=== PATIENT | female | born 2000 | race Caucasian/White ===

== ENCOUNTER 2023-05-31 10:20 | Emergency (ER) | payer MEDICAID, SELFPAY ==
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
[2023-05-31 10:23] VITALS: BP 126/74; PULSE 76; RESP 16; TEMP 36.6; O2SAT 99; BMI 25.3
--- OUTSIDE RECORDS SUMMARY | 2023-05-31 14:02 | XMS_ITS | Continuity of Care Document ---
Author Name Unknown Organization [facility] Address [address] [address]- Care Team Providers Care Grocery Bagger Name Role Phone Ty COLON, Yajaira Woods Primary Care Physician [facility]counter [facility] Date(s): 12/15/21 - 01/14/22 [facility] [address] [address]- Allergies, Adverse Reactions, Alerts Substance Reaction Severity Status cranberry Rash Active Cats Hives Active Immunizations Given and Recorded Vaccine Date Status Refusal Reason Measles/Mumps/Rubella Virus Vaccine 1 09/02/18 Giv en tetanus/diphtheria/pertussis, acel(Tdap) 07/12/18 Given influenza virus vaccine, inactivated 02/15/18 Give n 1Early/Late Reason: Other : because other nurse didnt do it Medications cetirizine 10 mg oral capsule 1 capsule = 10 mg, By Mouth, Daily, PRN for allergy symptoms, # 30 capsule, 0 Refills, Maintenance,09/07/19 17:38:00 EDT, [facility], [id number], 155, cm, 09/07/19 14:43:00 EDT, Height, 57.72, kg, 08/08/19 13:46:00 EDT, Dry Weight Start Date: 09/07/19 Stop Date: 10/07/19 Status: Ordered ferrous sulfate 325 mg oral enteric coated tablet 325 mg, By Mouth, 2 times a day, may take with food to minimize abdominal discomfort, # 30 tablet, Refills 1, Tot. Refills 1, Maintenance, 10/28/19 11:10:00 EDT, Route to [facility]acy [facility]ically, [id number], 155, cm, 10/28/19 8:47:00 EDT, Heig... Start Date: 10/28/19 Stop Date: 12/27/19 Status: Ordered PNV Plus oral tablet 1 tablet, By Mouth, Daily, Please fill as gummies, # 90 tablet, 3 Refills, Maintenance, 01/04/22 10:36:00 EDT, [id number], Partial fill upon patient request if the prescription is for a schedule II opioid drug., 1 tablet By Mouth Daily,Instr:P... Start Date: 01/04/22 Status: Ordered Multivitamins with Folic Acid 1 mg oral tablet 1 tablet, By Mouth, Daily, # 30 tablet, 11 Refills, Maintenance, 07/20/19 15:22:00 EDT, [id number], 1 tablet By Mouth Daily, 155, cm, 10/18/18 13:00:00 EDT, Height, 63, kg, 09/01/18 22:09:00 EDT, Dry Weight Start Date: 07/20/19 Status: Ordered Xulane 150 mcg-35 mcg/24 hr transdermal film, extended release See Instructions, 1 patch Topically apply a new patch weekly for 3 weeks, remove for 1 week, then repeat cycle, # 3 each, 6 Refills, Maintenance, 12/07/19 16:09:00 EDT, [id number], 1 patch Topically; apply a new patch weekly for 3 weeks, jaylin... Start Date: 12/07/19 Status: Ordered Problem List Condition Confirmation Course Effective Dates Status Health St atus Informant History of Anxiety Confirmed Active History of depression 1 Confirmed Active History of hemorrhage Confirmed 09/02/18 Active Blood type, Rh negative Confirmed Active 1Reports h/o depression/anxiety but reports no an issue currently. Social History Social History Type Response Smoking Status Never (less than 100 in lifetime) entered on: 01/04/22 Sex Patient Care team information Personnel Name: Yajaira Crawford MD Address: Address: [address] [place] [address] [facility] [place], [place] [address]
--- OUTSIDE RECORDS SUMMARY | 2023-05-31 14:02 | XMS_ITS | Continuity of Care Document ---
Author Name Unknown Organization [facility] Address [address] [address]- Care Team Providers Care Instructor Painting Name Role Phone Ty COLON, Yajaira Woods Primary Care Physician Encounter [facility] Date(s): 12/07/19 - 01/06/20 [facility] [address] [address]- [facility] Attending Physician: Ted Aponte Admitting Physician: Ted Aponte Referring Physician: AdmtrTed Allergies, Adverse Reactions, Alerts Substance Reaction Severity [...] 10/28/19 11:10:00 EDT, Route to Pharmacy Electronically, [facility]/pharmacy #[id number], 155, cm, 10/28/19 8:47:00 EDT, Heig... Start Date: 10/28/19 Stop Date: 12/27/19 Status: Ordered Multivitamins with Folic Acid 1 mg oral tablet 1 tablet, By Mouth, Daily, # 30 tablet, 11 Refills, Maintenance, 07/20/19 15:22:00 EDT, [facility]/pharmacy #207, 1 tablet By Mouth Daily, 155, cm, 10/18/18 13:00:00 EDT, Height, 63, kg, 09/01/18 22:09:00 EDT, Dry Weight Start Date: 07/20/19 Status: Ordered Xulane 150 mcg-35 mcg/24 hr transdermal film, extended release See Instructions, 1 patch Topically apply a new patch weekly for 3 weeks, remove for 1 week, then repeat cycle, # 3 each, 6 Refills, Maintenance, 12/07/19 16:09:00 EDT, [facility]/pharmacy #207, 1 patch Topically; apply a new patch weekly for 3 weeks, jaylin... Start Date: 12/07/19 Status: Ordered Problem List Condition Effective Dates Status Health Status Inform ant History of Anxiety(Confirmed) Active History of depression(Confirmed) 1 Active History of hemorrhage(Confirmed) 09/02/18 Active Blood type, Rh negative(Confirmed) Active 1Reports h/o depression/anxiety but reports no an issue currently. Social History Social History Type Response Smoking Status Never (less than 100 in lifetime) entered on: 02/15/18 Sex
--- OUTSIDE RECORDS SUMMARY | 2023-05-31 14:02 | XMS_ITS | Continuity of Care Document ---
Author Name Unknown Organization [facility] Autumn[employer]ayla Huang [employer] Address [address] [facility], [address] [place] [address]- Care Team Providers Care Artificial Breeding Technician Name Role Phone Ty COLON, Yajaira Woods Primary Care Physician [id number] Date(s): 01/22/22 - 02/21/22 [facility] Kendaliam[facility]la Gomez[facility] [address] [facility], [address] [place], [place] [address] Attending Physician: Ted Aponte Admitting Physician: AdmTed davidson Referring Physician: AdmtrTed Allergies, Adverse Reactions, Alerts [...] 10/28/19 11:10:00 EDT, Route to Pharmacy Electronically, [facility]/pharmacy #207, 155, cm, 10/28/19 8:47:00 EDT, Heig... Start Date: 10/28/19 Stop Date: 12/27/19 Status: Ordered PNV Plus oral tablet 1 tablet, By Mouth, Daily, Please fill as gummies, # 90 tablet, 3 Refills, Maintenance, 01/04/22 10:36:00 EDT, [facility]/pharmacy #[id number], Partial fill upon patient request if the prescription is for a schedule II opioid drug., 1 tablet By Mouth Daily,Instr:P... Start Date: 01/04/22 Status: Ordered Multivitamins with Folic Acid 1 mg oral tablet 1 tablet, By Mouth, Daily, # 30 tablet, 11 Refills, Maintenance, 07/20/19 15:22:00 EDT, [facility]/pharmacy #[id number], 1 tablet By Mouth Daily, 155, cm, 10/18/18 13:00:00 EDT, Height, 63, kg, 09/01/18 22:09:00 EDT, Dry Weight Start Date: 07/20/19 Status: Ordered Xulane 150 mcg-35 mcg/24 hr transdermal film, extended release See Instructions, 1 patch Topically apply a new patch weekly for 3 weeks, remove for 1 week, then repeat cycle, # 3 each, 6 Refills, Maintenance, 12/07/19 16:09:00 EDT, [facility]/pharmacy #[id number], 1 patch Topically; apply a new [...] on: 01/04/22 Sex Patient Care team information Care Team Personnel Name: Yajaira Crawford MD Position: [facility] MD Member Role: PCP Address: Address: [address] [place] [address] [facility] [place], [place] [address] Care Team Related Persons Name: DONALD RIDER Address: AMER[place] Address: [address] [address] Name: NAINA HATHAWAY Address: [employer] Address: [address] [address] Name: KIKO OWUSU Address: [address] [address]
--- OUTSIDE RECORDS SUMMARY | 2023-05-31 14:02 | XMS_ITS | Continuity of Care Document ---
Author Name Unknown Organization [facility] Address [address] [address]- Care Team Providers Care Shoe Stock Associate Name Role Phone Yajaira Crawford MD Primary Care Phys[id number] - [facility]/26/22 [facility] [address] [address] Attending Physician: Not on Staff, Attending MD Referring Physician: Yajaira Crawford MD Allergies, Adverse Reactions, Alerts Substance Reaction Severity [...] 10/28/19 11:10:00 EDT, Route to Pharmacy Electronically, [facility]/pharmacy #[id number], 155, cm, 10/28/19 8:47:00 EDT, Heig... Start Date: 10/28/19 Stop Date: 12/27/19 Status: Ordered PNV Plus oral tablet 1 tablet, By Mouth, Daily, Please fill as gummies, # 90 tablet, 3 Refills, Maintenance, 01/04/22 10:36:00 EDT, [facility]/pharmacy #[id number], Partial fill upon patient request if the prescription is for a schedule II opioid drug., 1 tablet By Mouth Daily,Instr:P... Start Date: 01/04/22 Status: Ordered Multivitamins with Folic Acid 1 mg oral tablet 1 tablet, By Mouth, Daily, # 30 tablet, 11 Refills, Maintenance, 07/20/19 15:22:00 EDT, [facility]/pharmacy #[id number], 1 tablet By Mouth Daily, 155, cm, 10/18/18 13:00:00 EDT, Height, 63, kg, 09/01/18 22:09:00 EDT, Dry Weight Start Date: 07/20/19 Status: Ordered Xulane 150 mcg-35 mcg/24 hr transdermal film, extended release See Instructions, 1 patch Topically apply a new patch weekly for 3 weeks, remove for 1 week, then repeat cycle, # 3 each, 6 Refills, Maintenance, 12/07/19 16:09:00 EDT, [facility]/pharmacy #[id number], 1 patch Topically; apply a new [...] Team Personnel Name: Yajaira Crawford MD Position: S [facility] Pediatric[facility] MD Member Role: PCP Address: Address: [address] [place] [address] [place] [address]- Care Team Related Persons Name: ODNALD RIDER Address: AMER[place] Address: [address] [address] [place] Name: NAINA HATHAWAY Address: [employer] Address: home [address] [address] [place] Name: KIKO OWUSU Address: home [address] [address]
--- OUTSIDE RECORDS SUMMARY | 2023-05-31 14:02 | XMS_ITS | Continuity of Care Document ---
Author Name Unknown Organization [facility] Marcolamikayla Huang [employer] [facility] Address [address] [place] [address], [address] [place] [address]- Care Team Providers Care Stock Roller Name Role Phone Ty COLON, Yajaira Woods Primary Care Physician Encounter [facility] Date(s): 10/01/19 - 10/08/19 [facility] [address] [facility], [address] [place] [address]- [facility] Attending Physician: Ayanna Sanches MD Referring Physician: Monica Armstrong CNM Allergies, Adverse Reactions, Alerts Substance Reaction Severity [...] Date: 09/07/19 Stop Date: 10/07/19 Status: Ordered Freestyle Lite Lancets See Instructions, # 100 each, Refills 5, Tot. Refills 5, Maintenance, TEST QID for Gestational Diabetes., 09/24/19 16:03:00 EDT, Supply, 155, cm, 09/20/19 9:44:00 EDT, Height, 57.72, kg, 08/08/19 13:46:00 EDT, Dry Weight Start Date: 09/24/19 Status: Ordered Freestyle Lite Monitor See Instructions, # 1 each, Refills 0, Tot. Refills 0, Maintenance, Test QID for Gestational Diabetes, 09/24/19 16:03:00 EDT, Supply, 155, cm, 09/20/19 9:44:00 EDT, Height, 57.72, kg, 08/08/19 13:46:00 EDT, Dry Weight Start Date: 09/24/19 Status: Ordered Freestyle Lite Test Strips See Instructions, # 100 each, Refills 5, Tot. Refills 5, Maintenance, TEST QID for Gestational Diabetes., 09/24/19 16:03:00 EDT, Supply, 155, cm, 09/20/19 9:44:00 EDT, Height, 57.72, kg, 08/08/19 13:46:00 EDT, Dry Weight Start Date: 09/24/19 Status: Ordered Multivitamins with Folic Acid 1 mg oral tablet 1 tablet, By Mouth, Daily, # 30 tablet, 11 Refills, Maintenance, 07/20/19 15:22:00 EDT, [facility]/pharmacy #[id number], 1 tablet By Mouth Daily, 155, cm, 10/18/18 13:00:00 EDT, Height, 63, kg, 09/01/18 22:09:00 EDT, Dry Weight Start Date: 07/20/19 Status: Ordered Problem List Condition Effective Dates Status Health Status Inform ant History of Anxiety(Confirmed) Active History of depression(Confirmed) 1 Active History of hemorrhage(Confirmed) 09/02/18 Active Blood type, Rh negative(Confirmed) Active 1Reports h/o depression/anxiety but reports no an issue currently. Social History Social History Type Response Smoking Status Never (less than 100 in lifetime) entered on: 09/28/19 Sex
--- OUTSIDE RECORDS SUMMARY | 2023-05-31 14:02 | XMS_ITS | Continuity of Care Document ---
Author Name Unknown Organization [facility] Isabellamikayla Huang [employer] Address [address] [facility], 4t [place] [address]- Care Team Providers Care Boat Patcher Plastic Name Role Phone Ty COLON, Yajaira Woods Primary Care Physician [id number]s): 10/01/19 - 10/31/19 [facility] [address] [facility], 4th [place] [address]- [facility] Attending Physician: Admlety, Yomi8 Admitting Physician: AdmtrTed Referring Physician: Admtr, Ar8 Allergies, Adverse Reactions, Alerts Substance Reaction Severity Status cranberry Rash Active Cats Hives Active Immunizations Given and Recorded Vaccine Date Status Refusal Reason Measles/Mumps/Rubella Virus Vaccine 1 09/02/18 Giv en tetanus/diphtheria/pertussis, acel(Tdap) 07/12/18 Given influenza virus vaccine, inactivated 02/15/18 Give n 1Early/Late Reason: Other : because other nurse didnt do it Medications acetaminophen 325 mg oral tablet 650 mg, By Mouth, Every 6 hours, PRN, for 7 days, not to exceed 4000 mg/day, # 30 tablet, Refills 1, Tot. Refills 1, Acute 11/11/19 11:10:00 EDT, Pain , Mild, 10/28/19 11:10:00 EDT, Route to PharmacyElectronically, [facility]/pharmacy #[id number], 155, cm, ... Start Date: 10/28/19 Stop Date: 11/11/19 Status: Ordered cetirizine 10 mg oral capsule 1 capsule = 10 mg, By Mouth, Daily, PRN for allergy symptoms, # 30 capsule, 0 Refills, Maintenance,09/07/19 17:38:00 EDT, Capsule, [facility]/pharmacy #[id number], 155, cm, 09/07/19 14:43:00 EDT, Height, [...] Date: 10/28/19 Stop Date: 12/27/19 Status: Ordered ibuprofen 800 mg oral tablet 800 mg, 1, tablet, By Mouth, Every 8 hours, PRN, for 30 days, Only a total of 800mg of Ibuprofen every 8 hours. not to exceed 3200 mg/day, # 30 tablet, Refills 1, Tot. Refills 1, Acute 12/27/19 11:11:00 EDT, Pain , Moderate, 10/28/19 11:11:00 EDT, Ro... Start Date: 10/28/19 Stop Date: 12/27/19 Status: [...]
--- OUTSIDE RECORDS SUMMARY | 2023-05-31 14:03 | XMS_ITS | Continuity of Care Document ---
Author Name Unknown Organization [facility] Address [address] [address]- Care Team Providers Care Inspecting And Testing Lead Hand Name Role Phone Ty COLON, Yajaira Woods Primary Care Physician Encounter [facility] Date(s): 03/24/20 - 04/23/20 [facility] [address] [address]- Allergies, Adverse Reactions, Alerts Substance Reaction Severity [...]
--- OUTSIDE RECORDS SUMMARY | 2023-05-31 14:03 | XMS_ITS | Continuity of Care Document ---
Author Name Unknown Organization [facility] Autumnmikayla Huang [employer] Address [address] [facility], 4t [place] [address]- Care Team Providers Care Sample Driller Name Role Phone Ty COLON, Yajaira Woods [id number] - [facility] [employer] [address] [facility], [address]th [place], [place] [address] Attending Physician: Ayanna Sanches MD Referring Physician: Not on Staff, Referring MD Allergies, Adverse Reactions, Alerts Substance Reaction [...] 10/28/19 11:10:00 EDT, Route to Pharmacy Electronically, [facility]/pharmacy #[id number], 155, cm, 10/28/19 8:47:00 EDT, Heig... Start Date: 10/28/19 Stop Date: 12/27/19 Status: Ordered PNV Plus oral tablet 1 tablet, By Mouth, Daily, Please fill as gummies, # 90 tablet, 3 Refills, Maintenance, 01/04/22 10:36:00 EDT, [facility]/pharmacy #[id number], Partial fill upon patient request if the prescription is for a schedule II opioid drug., 1 tablet By Mouth Daily,Instr:P... Start Date: 01/04/22 Status: Ordered Multivitamins with Folic Acid 1 mg oral tablet 1 tablet, By Mouth, Daily, # 30 tablet, 11 Refills, Maintenance, 07/20/19 15:22:00 EDT, [facility]/pharmacy #[id number], 1 tablet By Mouth Daily, 155, cm, 10/18/18 13:00:00 EDT, Height, 63, kg, 09/01/18 22:09:00 EDT, Dry Weight Start Date: 07/20/19 Status: Ordered Xulane 150 mcg-35 mcg/24 hr transdermal film, extended release See Instructions, 1 patch Topically apply a new patch weekly for 3 weeks, remove for 1 week, then repeat cycle, # 3 each, 6 Refills, Maintenance, 12/07/19 16:09:00 EDT, [facility]/pharmacy #207, 1 patch Topically; apply a new [...] Pediatrics MD Member Role: PCP Address: Address: [address] [place] [address] [facility] [place], [place] [email or web address] Care Team Related Persons Name: DONALD RIDER Address: AMER[place] Address: [address] [address] [place] Name: NAINA HATHAWAY Address: [employer] Address: home [address] [address] [place] Name: KIKO OWUSU Address: home [address] [address]
--- OUTSIDE RECORDS SUMMARY | 2023-05-31 14:03 | XMS_ITS | Continuity of Care Document ---
Author Name Unknown Organization [facility] Autumnmikayla Huang [employer] Address [address] [facility], 4t [place] [address]- Care Team Providers Care Combo Welder Name Role Phone Ty COLON, Yajaira Woods Primary Care Physician En[place] [facility] Date(s): 09/10/19 - 09/17/19 [facility] [employer] [address] [facility], 4th [place] [address]- [facility] Attending Physician: Ayanna Sanches MD Referring Physician: [...] 0 Refills, Maintenance,09/07/19 17:38:00 EDT, [facility], [facility], 155, cm, 09/07/19 14:43:00 EDT, Height, 57.72, kg, 08/08/19 13:46:00 EDT, Dry Weight Start Date: 09/07/19 Stop Date: 10/07/19 Status: Ordered Multivitamins with Folic Acid 1 [...] Smoking Status Never (less than 100 in lifetime); Tobacco user in household: No entered on: 08/08/19 Sex
--- OUTSIDE RECORDS SUMMARY | 2023-05-31 14:03 | XMS_ITS | Continuity of Care Document ---
Author Name Unknown Organization [facility] ter Address [address] [place] [address]- Care Team Providers Care Product Safety Expert Name Role Phone Ty COLON, Yajaira Woods Primary Care Physician Encounter [facility] Date(s): 10/26/19 - 10/28/[address] [address]- [facility] Discharge Disposition: A-D/C Home Attending Physician: López Shepard MD Admitting Physician: López Shepard MD Referring Physician: López Shepard MD Allergies, Adverse Reactions, Alerts Substance Reaction [...] Mild, 10/28/19 11:10:00 EDT, Route to PharmacyElectronically, [facility]/pharmacy #[id number], 155, cm, ... Start Date: 10/28/19 Stop Date: 11/11/19 Status: Ordered cetirizine 10 mg oral capsule 1 capsule = 10 mg, By Mouth, Daily, PRN for allergy symptoms, # 30 capsule, 0 Refills, Maintenance,09/07/19 17:38:00 EDT, Capsule, [facility]/pharmacy #[id number], 155, cm, 09/07/19 14:43:00 EDT, Height, 57.72, kg, 08/08/19 13:46:00 EDT, Dry Weight Start Date: 09/07/19 Stop Date: 10/07/19 Status: Ordered ferrous sulfate 325 mg oral enteric coated tablet 325 mg, By Mouth, 2 times a day, may take with food to minimize abdominal discomfort, # 30 tablet, Refills 1, Tot. Refills 1, Maintenance, 10/28/19 11:10:00 EDT, Route to Pharmacy Electronically, [facility]/pharmacy #207, 155, cm, 10/28/19 8:47:00 EDT, Heig... [...] tablet, 11 Refills, Maintenance, 07/20/19 15:22:00 EDT, [facility]/pharmacy #[id number], 1 tablet By Mouth Daily, 155, cm, 10/18/18 13:00:00 EDT, Height, 63, kg, 09/01/18 22:09:00 EDT, Dry Weight Start Date: 07/20/19 Status: Ordered Problem List Condition Effective Dates Status Health Status Inform ant History of Anxiety(Confirmed) Active History of depression(Confirmed) 1 Active History of hemorrhage(Confirmed) 09/02/18 Active Blood type, Rh negative(Confirmed) Active 1Reports h/o depression/anxiety but reports no an issue currently. Vital Signs Most recent to oldest [Reference Range]: 1 2 3 Height 155 cm (10/28/19 8:47 AM) 155 cm (10/27/19 3:54 PM) 155 cm (10/27/19 11:53 AM) Weight 68.7 kg (10/26/19 1:09 PM) Oxygen Saturation [94-100 %] 100 % (10/27/19 9:30 AM) 100 % (10/27/19 8:01 AM) 100 % (10/27/19 3:59 AM) Pulse Rate [55-90 bpm] 69 bpm (10/28/19 8:47 AM) 86 bpm (10/28/19 12:00 AM) 92 bpm *H* (10/27/19 3:54 PM) Body Mass Index [18.5-24.99] 28.6 *H* (10/26/19 1:09 PM) Blood Pressure [90-138/55-84 mm Hg] 91/50mm Hg (10/28/19 8:47 AM) 97/55mm Hg (10/28/19 12:00 AM) 97/51mm Hg (10/27/19 3:54 PM) Respiratory Rate [16-30 br/min] 17 br/min (10/28/19 8:47 AM) 18 br/min (10/28/19 12:00 AM) 18 br/min (10/27/19 3:54 PM) Temperature [96.8-100.4 DegF] 97.5 DegF (10/28/19 8:47 AM) 98.3 DegF (10/28/19 12:00 AM) 98.2 DegF (10/27/19 3:54 PM) Mode of Delivery (Oxygen) Room air (10/27/19 9:30 AM) Room air (10/27/19 8:01 AM) Room air (10/27/19 3:59 AM) Blood pressure sites Arm, right (10/28/19 8:47 AM) Arm, left (10/28/19 12:00 AM) Arm, left (10/27/19 3:54 PM) Temperature Route Oral (10/28/19 8:47 AM) Oral (10/28/19 12:00 AM) Oral (10/27/19 3:54 PM) Dry Weight 68.7 kg (10/26/19 1:09 PM) Social History Social History Type Response Smoking Status Never (less than 100 in lifetime) entered on: 02/15/18 Sex
--- OUTSIDE RECORDS SUMMARY | 2023-05-31 14:03 | XMS_ITS | Continuity of Care Document ---
Author Name Unknown Organization [facility] Address [address] [address]- Care Team Providers Care Security Auditor Name Role Phone Ty COLON, Yajaira Woods Primary Care Phys[id number] 01/27/22 - 02/26/22 [facility] [address] [place] [id number] Attending Physician: Ted Aponte Admitting Physician: Ted [...] 10/28/19 11:10:00 EDT, Route to Pharmacy Electronically, [facility]/pharmacy #[id number], 155, cm, 10/28/19 8:47:00 EDT, [place]... Start Date: 10/28/19 Stop Date: 12/27/19 Status: Ordered PNV Plus oral tablet 1 tablet, By Mouth, Daily, Please fill as gummies, # 90 tablet, 3 Refills, Maintenance, 01/04/22 10:36:00 EDT, [facility]/pharmacy #[id number], Partial fill upon patient request if the prescription is for a schedule II opioid drug., 1 tablet By Mouth Daily,Instr:P... Start Date: 01/04/22 Status: Ordered Multivitamins with Folic Acid 1 mg oral tablet 1 tablet, By Mouth, Daily, # 30 tablet, 11 Refills, Maintenance, 07/20/19 15:22:00 EDT, [facility]/pharmacy #[id number], 1 tablet By Mouth Daily, 155, cm, 10/18/18 13:00:00 EDT, Height, 63, kg, 09/01/18 22:09:00 EDT, Dry Weight Start Date: 07/20/19 Status: Ordered Xulane 150 mcg-35 mcg/24 hr transdermal film, extended release See Instructions, 1 patch Topically apply a new patch weekly for 3 weeks, remove for 1 week, then repeat cycle, # 3 each, 6 Refills, Maintenance, 12/07/19 16:09:00 EDT, [facility]/pharmacy #[id number], 1 patch Topically; apply a [...] Team Personnel Name: Yajaira Crawford MD Position: [facility] General Pediatrics MD Member Role: PCP Address: Address: [address] [place] [address] [place] [address]- Care Team Related Persons Name: DONALD RIDER Address: [place] Address: [address] [address] Name: NAINA HATHAWAY Address: [employer] Address: [address] [address] Name: KIKO OWUSU Address: home [address] [address]
--- OUTSIDE RECORDS SUMMARY | 2023-05-31 14:03 | XMS_ITS | Continuity of Care Document ---
Author Name Unknown Organization [facility] Address [address] [address]- Care Team Providers Care Manager Heart Name Role Phone Ty COLON, Yajaira Woods Primary Care Physician Encounter [facility] Date(s): 10/02/19 - 11/28/19 [facility] and [facility] [address] [address]- [facility] Attending Physician: Not on Staff, Attending MD Admitting Physician: Gianna Wilkinson CNM Referring Physician: Gianna Wilkinson CNM Allergies, Adverse Reactions, Alerts Substance Reaction [...] 10/28/19 11:10:00 EDT, Route to Pharmacy Electronically, [facility]/pharmacy #[id number], 155, cm, 10/28/19 8:47:00 [...] tablet, 11 Refills, Maintenance, 07/20/19 15:22:00 EDT, [facility]/pharmacy #[id number], 1 tablet By Mouth [...]
--- OUTSIDE RECORDS SUMMARY | 2023-05-31 14:03 | XMS_ITS | Continuity of Care Document ---
Author Name Unknown Organization [facility] Address [address] [address]- Care Team Providers Care Gas Station Clerk Name Role Phone Ty COLON, Yajaira Woods Primary Care Physician En[facility] Date(s): 08/21/19 - 10/05/19 [facility] [address] [address]- [facility] Attending Physician: Gianna Wilkinson CNM Admitting Physician: Gianna Wilkinson CNM Referring Physician: [...]
--- OUTSIDE RECORDS SUMMARY | 2023-05-31 14:03 | XMS_ITS | Continuity of Care Document ---
Author Name Unknown Organization [facility] Address [address] [address]- Care Team Providers Care Foreign Food Cook Specialty Name Role Phone Yajaira Crawford MD Primary Care Physician ( [phone] [place] [facility] [place] 07/20/19 - 09/12/19 [facility] [address] [address]- [facility] Attending Physician: Not on Staff, Attending MD [...]
--- OUTSIDE RECORDS SUMMARY | 2023-05-31 14:03 | XMS_ITS | Continuity of Care Document ---
Author Name Unknown Organization [facility] Address [address] [address]- Care Team Providers Care Food Service Attendant Name Role Phone Ty COLON, Yajaira Woods Primary Care Physician Encounter [facility] Date(s): 03/31/20 - 04/30/20 [facility] [address] [address]- Allergies, Adverse Reactions, Alerts Substance Reaction Severity [...]
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
[2023-05-31] MEDS: Ketorolac Tromethamine 15 MG/ML VIAL IM (14:32)
--- NOTE | 2023-05-31 14:34 | PC.NURSE ---
patient a&ox3, c/o rt neck pain 01/18, pt medicated for pain per order, pt to radiology
[2023-05-31 15:52] VITALS: BP 117/68; PULSE 70; RESP 16; TEMP 36.8; O2SAT 99
== END 2023-05-31 15:54 | disposition home or self-care (01) ==
PROVIDERS: Emergency Provider Emergency Medicine; PCP Internal Medicine
DX: S13.4XXA Sprain of ligaments of cervical spine, initial encounter (principal); S06.0X0A Concussion without loss of consciousness, initial encounter; R51.9 Headache, unspecified; M54.2 Cervicalgia; R07.89 Other chest pain; V43.62XA Car passenger injured in collision with other type car in traffic accident, initial encounter; Y93.9 Activity, unspecified; Y92.410 Unspecified street and highway as the place of occurrence of the external cause; Y99.8 Other external cause status
CPT/HCPCS: 70450; 71045; 72125; 96372; 99284; J1885

== ENCOUNTER 2024-03-29 12:43 | Outpatient (RCR) | payer MEDICAID, SELFPAY ==
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
--- NOTE | 2024-04-09 11:18 | MHC.PT.DC ---
[facility] [place] Office [place] Office [place] Office [address] Jason Leal 140 [facility] [phone] F: [phone] F: [phone] F: [phone] F: [phone] Physical Therapy Discharge Report Diagnosis: PRABHAKAR KNEE PATELLOFEMORAL Date of Surgery: Date of Evaluation: 03/16/24 Date of Discharge: 04/09/24 Treatments to Date: 4 Cancellations to Date: 3 No Shows to Date: 4 Discharge Status: Patient Elected to Stop Visit Non-compliance Discharge Summary: JASBIR APPEARED TO BE A GOOD PT CANDIDATE, HOWEVER, SHE HAD POOR ATTENDANCE FOR SCHED PT APPTS, PLEASE SEE ABOVE-> SHE IS D/C THIS DATE FROM PT PER OUR PT DEPT ATTENDANCE POLICY- SHE DID NOT MEET HER PT GOALS. Electronically signed by: PATRIC FAIRBANKS,PT Please sign and return to therapist. Thank you for your referral.
== END 2024-04-09 11:18 | disposition home or self-care (01) ==
LOC: HO.PT 12:43
PROVIDERS: PCP Internal Medicine; Visit Provider Internal Medicine
DX: M22.2X1 Patellofemoral disorders, right knee (principal); M22.2X2 Patellofemoral disorders, left knee
CPT/HCPCS: 97110; 97162; 97530

== ENCOUNTER 2024-10-24 11:46 | Emergency (ER) | payer MEDICAID, SELFPAY ==
[2024-10-24 12:02] VITALS: BP 113/69; PULSE 92; RESP 18; TEMP 36.9; O2SAT 98; BMI 26.9
--- NOTE | 2024-10-24 12:03 | ED_ITS ---
HPI - General Adult General Chief complaint: Upper Respiratory Symptoms Stated complaint: throat pain Time Seen by Provider: 10/24/24 12:04 Source: patient Mode of arrival: ambulatory Limitations: no limitations History of Present Illness ED Provider: YOLI REYES PA-C HPI narrative: 24-year-old female with no significant past medical history presents to the ED today for evaluation of sore throat, odynophagia and dry cough x4 days. No known sick contacts. Denies fever, chills, dysphagia, nausea or vomiting. Able to tolerate p.o. at home. Related Data Previous Rx's ?Medication ?Instructions ?Recorded ketorolac 10 mg tablet 10 mg PO TID PRN pain 5 days #15 05/31/23 tabs lidocaine 5 % topical patch 1 patch topical DAILY PRN pain #15 05/31/23 ea benzocaine 15 mg-menthol 2.6 mg 1 seema mucous membrane Q2-4H PRN 10/24/24 lozenges (Cepacol Sore Throat sore throat #16 ea (benzocaine-menthol)) penicillin V potassium 500 mg 500 mg PO BID 10 days #2 0 tabs 10/24/24 tablet Allergies Allergy/AdvReac Type Severity Reaction Status Date / Time cat dander (CATS) Allergy Unknown HIVES Verified 10/24/24 12:04 cranberries Allergy Unknown throat Uncoded 05/31/23 10:23 tightness Review of Systems Review of Systems: Constitutional: No fever, chills, fatigue, night sweats, weight changes ENT/Mouth: No ear pain, hearing loss, nasal congestion, sinus pain, rhinorrhea, +sore throat, +odynophagia, No dysphagia Eyes: No eye pain, swelling, redness, vision changes, discharge Cardio: No chest pain, palpitations, CEJA, orthopnea, peripheral edema Pulm: No SOB, cough, sputum, wheezing, dyspnea, hemoptysis GI: No nausea, vomiting, hematemesis, abdominal pain, diarrhea, constipation, hematochezia, melena : No irregular bleeding, dysuria, frequency, urgency, hesitancy, hematuria, flank pain MSK: No back pain, neck pain, joint pain, myalgias Skin: No lesions, rashes Neuro: No weakness, numbness, paresthesias, LOC, dizziness, headache All other systems reviewed and are negative. [facility] Past Medical History Attestation statement: The following information was validated with the patient. Source: old records reviewed and nursing notes reviewed Social History Social History Advance Directives: No Advance Directives Information Provided: Yes Do you have a plan to hurt others: No Plan Physical Exam ED Vital Signs: Vital Signs - 24 hr 10/24/24 12:02 10/24/24 13:24 Temperature 98.5 F 98.5 F Pulse Rate 92 92 Respiratory Rate 18 18 Blood Pressure 113/69 113/69 Pulse Oximetry 98 98 Oxygen Delivery Method Room Air Room Air BMI result Body Mass Index 26.9 Vital signs stable, afebrile Const General: cooperative, healthy appearing, comfortable, no acute distress, alert and awake Orientation/consciousness: patient oriented x3 Limitations: no limitations HENMT Other: + posterior oropharynx erythematous, no edema, uvula is midline, no tonsilar exudates or peritonsillar masses, controlling secretions and speaking in complete sentences Head: Yes normal to inspection, Yes normocephalic and Yes atraumatic Ears: hearing grossly normal bilaterally, external ears normal, TM's normal bilaterally, EAC's normal, mastoids normal and no periauricular adenopathy General nose exam: Normal external nose present and No nasal discharge present Face and sinus: Yes normal facial exam and Yes sinuses nontender Eyes General: appearance normal, both eyes and all related structures Pupils: Equal, round and reactive pupils present Neck Other: + no cervical, submandibular or submental LAD. Neck: Yes normal visual inspection and Yes full ROM Resp Effort & Inspection: normal respiratory effort and able to speak in complete sentences Auscultation: clear to auscultation bilaterally Cardio Rate: regular rate Rhythm: regular rhythm GI Inspection: Yes normal to inspection Palpation (GI): Soft to palpation and nontender Skin General skin exam: no rashes or lesions noted Neuro General: patient oriented x3, gait normal and moves all extremities Cranial nerves: Yes Equal, round and reactive pupils present Extrem General: Yes normal to inspection Course Course Course Narrative: Positive for strep throat. Negative COVID, flu, RSV. Discussed results with patient. Will send penicillin to pharmacy for treatment. Patient has remained stable throughout ED visit today. Discussed worrisome signs and symptoms and when to return to the ED. All questions answered at this time. Patient is agreeable with disposition and stable for discharge. Medical Decision Making Medical Decision Making [facility] Narrative: 24-year-old female with no significant past medical history presents to the ED today for evaluation of sore throat, odynophagia and dry cough x4 days. Vital signs stable. Afebrile. She is well-appearing and in no acute distress. Airway patent. posterior oropharynx erythematous, no edema, uvula is midline, no tonsilar exudates or peritonsillar masses, controlling secretions and speaking in complete sentences Differential diagnosis includes strep throat, viral syndrome. Unlikely [employer], retropharyngeal abscess, dental abscess, epiglottis, acute respiratory distress, pneumonia. Plan for viral/strep swabs and re-evaluation. Differential Diagnosis Differential Diagnoses: The differential diagnosis associated with the presentation includes as above. Admission/Observation Not indicated Lab Data [facility] Lab Attestation statement: I reviewed the patient's lab results. as above Labs: Lab Results 10/24/24 Range/Units 12:13 Influenza Type A (PCR) NEGATIVE (Negative) Influenza Type B (PCR) NEGATIVE (Negative) RSV RNA Qual (PCR) NEGATIVE (Negative) SARS-CoV-2 RNA (RT-PCR) NEGATIVE (Negative) S. pyogenes GrpA RICK Positive A (Negative) External Record Review External record reviewed: Inpatient record Prescription Management I considered prescription management with: Pain Medication (Cepacol throat lozenges) and Antibiotic (Penicillin) Social Determinants Patient?s care significantly limited by Social Determinants of Health including: Other Social Determinant of Health Critical Care Time Critical Care Time Critical Care Time: No Discharge Plan Discharge Clinical Impression: Strep pharyngitis Patient Disposition: Home, Self-Care Instructions: Strep Throat (ED) Additional Instructions: You were seen in the ED today for evaluation of sore throat. You tested positive for strep throat. Penicillin is an antibiotic that has been sent to your pharmacy. Take this twice daily for the next 10 days to treat strep throat. Do not stop taking these antibiotics early or miss any doses as this may cause infection to return or worsen. Cepacol throat lozenges have been sent to your pharmacy to help with throat pain. You may also purchase [id number] chloraseptic spray to numb your throat. Take Tylenol and ibuprofen as needed for body aches or fevers. Make sure to change your toothbrush as this contains bacteria. Strep throat is contagious. If anyone else in your household is exhibiting symptoms, please advise them to come to the ED, urgent care, or to see their primary care provider. Follow up with your primary care provider this week. Return to the Emergency Department if you experience worsening or uncontrolled pain, tongue swelling, difficulty swallowing, change in your voice, difficulty breathing, fevers 100.4?F or greater, recurrent vomiting, development of a rash, or any other concerning symptoms. In the case of emergency, call 911.? Prescriptions: New penicillin V potassium 500 mg tablet 500 mg PO BID 10 Days Qty: 20 0RF Cepacol Sore Throat (amado-men) 15-2.6 mg lozenge 1 seema mucous membrane Q2-4H PRN (Reason: sore throat) Qty: 16 0RF No Action ketorolac 10 mg tablet 10 mg PO TID PRN (Reason: pain) 5 Days Qty: 15 0RF lidocaine 5 % adhesive patch,medicated 1 patch topical DAILY PRN (Reason: pain) Qty: 15 0RF Rx Instructions: leave on most painful area for up to 12 hrs Referrals: Physician,Unknown J [Physician, Medical] Stand Alone Forms: Work/School Release Interventions: ED Discharge Assessment Last Done: 10/24/24 13:24 Discharge Date/Time: 10/24/24 13:24 Print Language: Ukrainian
[2024-10-24 12:33] LABS: IDNOW Serial# 55D5AD1C; Strep A Nucleic Acid Positive (Negative)
[2024-10-24 13:02] LABS: Resp Syncy Virus RNA Qual PCR NEGATIVE (Negative); SARS COV2 PCR INHOUSE NEGATIVE (Negative)
[2024-10-24 13:24] VITALS: BP 113/69; PULSE 92; RESP 18; TEMP 36.9; O2SAT 98
--- OUTSIDE RECORDS SUMMARY | 2024-10-24 14:03 | XMS_ITS | Patient Health Record ---
Author Organization [facility] Address [address] [place], [place] [id number] Care Team Providers Care Manager Of Training Name Role Phone MICHAEL CHAN Unavailable [phone] Allergies Allergen (clinical drug ingredient) Drug/Non Drug Allergy documented on EMR Reaction Allergy Type Onset Date Status Cats Claw Unknown Drug Allergy Active Cranberry Unknown Drug Allergy Active Results Component Value Reference Range Notes Test, Urine Reviewed date:01/13/2024 05:17:31 PM Interpretation:Negative Performing Lab: Notes/Report: Negative Test, Urine Negative Lot # [id number] Exp. Date 10/11/2024 Test, Urine Reviewed date:01/18/2024 10:53:54 AM Interpretation:Negative Performing Lab: Notes/Report: Negative Test, Urine neg Lot # [id number] Exp. Date 10/11/2024 hCG,Beta Subunit, Qnt-[id number] Reviewed date:01/19/2024 09:11:47 AM Interpretation:Negative Performing Lab:[facility] [place], [address] [place] [address], [place], Phone - [phone], Director - Tavia Notes/Report: hCG,Beta Subunit,Qnt,Serum <1 Female (Non-) 0 - 5 (Postmenopausal) 0 - 8 . Female () Weeks of Gestation 3 6 - 71 4 10 - 750 5 474 - 8931 6 408 - 45564 7 3508 -781790 8 52225 -136665 9 68652 -478082 10 88847 -165945 12 05536 -826914 14 61893 - 02416 15 98730 - 34165 16 0766 - 47426 17 5198 - 06323 18 6804 - 53679 Zeus ECLIA methodology Prolactin-[id number] Reviewed date:01/24/2024 01:18:53 PM Interpretation:25.7 Normal Performing Lab:[facility], [address] [facility] [place], [place], Phone - [phone], Director - Tavia Notes/Report: Prolactin 25.7 4.8-33.4 ng/mL HBsAg Screen-[id number] Reviewed date:01/24/2024 01:19:02 PM Interpretation:Negative Performing Lab:[facility] [place], [address], [address], [place], Phone - [phone], Director - [facility] Notes/Report: HBsAg Screen Negative Negative Hepatitis B Surf Ab Quant-00 [id number] Reviewed date:01/19/2024 01:20:52 PM Interpretation:Not Immune Performing Lab:[facility] [place], [address], [address], [place], Phone - [phone], Director - [facility] Notes/Report: Hepatitis B Surf Ab Quant <3.5 Immunity>10 mIU /mL Status of Immunity Anti-HBs Level Inconsistent with Immunity 0.0 - 10.0 Consistent with Immunity >10.0 T pallidum Screening [place] -[id number] Reviewed date:01/24/2024 01:19:12 PM Interpretation:Negative Performing Lab:[facility], [address], [address], [place], Phone - [phone], Director - [facility] Notes/Report: T pallidum Antibodies Non Reactive Non Reactive HIV Ab/p24 Ag with Reflex-[id number] Reviewed date:01/24/2024 01:19:23 PM Interpretation:Negative Performing Lab:[facility] [place], [address], [address], [place], Phone - [phone], Director - [facility] Notes/Report: HIV Ab/p24 Ag Screen Non Reactive Non Reactive HIV-1/HIV-2 antibodies and HIV-1 p24 antigen were NOT detected. There is no laboratory evidence of HIV infection. HIV Negative Ct, Ng, Trich vag by LEONA-[id number] Reviewed date:01/24/2024 01:19:39 PM Interpretation:Negative Performing Lab:[facility], [address], [address], [place], Phone - [phone], Director - [facility] Notes/Report: Chlamydia by LEONA Negative Negative Gonococcus by LEONA Negative Negative Trich vag by LEONA Negative Negative HCV Antibody-[id number] Reviewed date:01/24/2024 01:18:36 PM Interpretation:Negative Performing Lab:[facility] [place], [address], [address], [place], Phone - [phone], Director - [facility] Notes/Report: Hep C Virus Ab Non Reactive Non Reactive HCV antibody alone does not differentiate between previously resolved infection and active infection. Equivocal and Reactive HCV antibody results should be followed up with an HCV RNA test to support the diagnosis of active HCV infection. TSH reflex to [id number] Reviewed date:01/24/2024 01:18:26 PM Interpretation:0.973 Normal Performing Lab:[facility] [place], [address] [facility] [place], [place], Phone - [phone], Director - Tavia Notes/Report: TSH 0.973 0.450-4.500 uIU/mL Reason For Referral No Information Medications Medication SIG (Take, Route, Frequency, Duration) Notes Start Date End Date Status Azithromycin 500 MG Take [address] at in a single dose Orally Single dose for 1 days 08/17/2021 Not-Talin g Acyclovir 800 MG 1 tablet Orally twic e daily, for 5 days, when you feel an outbreak coming on. for 5 day(s) 09/21/2021 Not-Phyllis ng Fluconazole 150 MG 1 tablet Orally One tablet on the first day, then one tablet every 3rd day for 3 days 08/17/2021 Not-Taking MetroGel-Vaginal 0.75 % 1 application at bedtime Vaginal Once a day for 5 day(s) 08/17/2021 Not-Taking Social History Sex Assigned At : Social History Observation Description Sex Assigned At Female Section Notes: Aptima/ HCG bw Problems Problem Type SNOMED Code ICD Code Onset Dates Problem Status W/U Status Risk Notes Problem Amenorrhea (N91.2) Active confirmed Vital Signs Blood pressure diastolic 62 mm Hg 01/18/2024 Height 5'1 in 01/18/2024 Blood pressure systolic 118 mm Hg 01/18/2024 Weight 138.0 lbs 01/18/2024 BMI 26.07 kg/m2 01/18/2024 Encounters Encounter Location Date Provider Diagnosis [address] [id number] 01/13/2024 MICHAEL CHAN Encounter for preg florentino test, result negative Z32.02 and Encounter for screening for infections with a predominantly sexual mode of transmission Z11.[address] [id number] 01/18/2024 MICHAEL CHAN Galactorrhea O92.6 ; Amenorrhea N91.2 ; Encounter for test, result negative Z32.02 ; Encounter for screening for infections with a predominantly sexual mode of transmission Z11.3 ; HIV Screening Z11.4 and Encounter for screening for other viral diseases Z11.[address] [id number] 01/24/2024 MICHAEL CHAN Assessments Encounter Date Diagnosis (ICD Code) Assessment Notes Treatment Notes Treatment Clinical Notes Section Notes 01/13/2024 Encounter for test, result negative (ICD-10 - Z32.02) 01/13/2024 Encounter for screening for infections with a predominantly sexual mode of transmission (ICD-10 - Z11.3) 01/18/2024 Galactorrhea (ICD-10 - O92.6) Will do lab work up for new onset galactorrhea Need 2 out of 3 Sections from A-C Section A) Problems (only need one from below) One acute or uncomplicated illness/injury Section B) Data (at least one of the following categories in this section) Category 1: (Choose 2 of the following): Order unique tests Section C) Risk Document low risk of morbidity/mortal ity 01/18/2024 Amenorrhea (ICD-10 - N91.2) Need 2 out of 3 Sections from A-C Section A) Problems (only need one from below) One acute or uncomplicated illness/injury Section B) Data (at least one of the following categories in this section) Category 1: (Choose 2 of the following): Order unique tests Section C) Risk Document low risk of morbidity/mortal ity 01/18/2024 Encounter for test, result negative (ICD-10 - Z32.02) Urine PT negative today. Reviewed potential causes for late/missed menses. If testing negative recommend repeating urine PT in 1-2 weeks if no menses Need 2 out of 3 Sections from A-C Section A) Problems (only need one from below) One acute or uncomplicated illness/injury Section B) Data (at least one of the following categories in this section) Category 1: (Choose 2 of the following): Order unique tests Section C) Risk Document low risk of morbidity/mortal ity 01/18/2024 Encounter for screening for infections with a predominantly sexual mode of transmission (ICD-10 - Z11.3) Discussed STI risks, screenings that are available through [facility] and safe sex. Clt aware of lab processing times and how to view results on portal and how positive results will be communicated Need 2 out of 3 Sections from A-C Section A) Problems (only need one from below) One acute or uncomplicated illness/injury Section B) Data (at least one of the following categories in this section) Category 1: (Choose 2 of the following): Order unique tests Section C) Risk Document low risk of morbidity/mortal ity 01/18/2024 HIV Screening (ICD-10 - Z11.4) Need 2 out of 3 Sections from A-C Section A) Problems (only need one from below) One acute or uncomplicated illness/injury Section B) Data (at least one of the following categories in this section) Category 1: (Choose 2 of the following): Order unique tests Section C) Risk Document low risk of morbidity/mortal ity 01/18/2024 Encounter for screening for other viral diseases (ICD-10 - Z11.59) Need 2 out of 3 Sections from A-C Section A) Problems (only need one from below) One acute or uncomplicated illness/injury Section B) Data (at least one of the following categories in this section) Category 1: (Choose 2 of the following): Order unique tests Section C) Risk Document low risk of morbidity/mortal ity 01/13/2024 Other Plan Of Treatment No Information Insurance Providers Payer Name Payer Address Payer Phone Subscriber Number Group Number Insured Name Patient Relationship to Insured Coverage Start Date Coverage End Date [place] ATT [place]S [address] [place] [id number] [phone] [id number] [place] Self - patient is the insured Medical (General) History Medical History History ICD Code chlamydia Surgical History Surgery Date(Month/Year) Hospitalization History Reason Date(Month/Year) child
--- OUTSIDE RECORDS SUMMARY | 2024-10-24 14:03 | XMS_ITS | Encounter Summary ---
Author Organization [facility] Address [address] [place] [id number] Phone Care Team Providers Care Corporate Analyst Name Role Phone Yajaira Crawford MD Primary Care Provider Encounter Details Date Type Department Care Team (Late st Contact Info) Description 04/26/2014 Documentation [facility] [address] [place] [address] Family Medicine, Physician [address], [place] [phone] Social History Tobacco Use Types Packs/Day Years Used Date Smoking Tobacco: Never Assessed Comments Unknown Sex and Gender Information Value Date Recorded Sex Assigned at Not on file Legal Sex Female 5:06 PM EDT Gender Identity Not on file Sexual Orientation Not on file documented as of this encounter Plan of Treatment Not on file documented as of this encounter Visit Diagnoses Not on filedocumented in this encounter Care Teams Corporate Analyst Relationship Specialty Start Date End Date Yajaira Crawford MD [address] [place] [address] [place] [address] PCP - General 11/19/16 05/19/21 documented as of this encounter
== END 2024-10-24 13:24 | disposition home or self-care (01) ==
PROVIDERS: Physician Assistant Medical; Emergency Provider Emergency Medicine Emergency Medical Services; PCP Internal Medicine
DX: J02.0 Streptococcal pharyngitis (principal); R05.9 Cough, unspecified; Z03.818 Encounter for observation for suspected exposure to other biological agents ruled out
CPT/HCPCS: 87637; 87651; 99282; 99283